=== PATIENT | female | born 1985 | race Caucasian/White ===

== ENCOUNTER 2018-02-07 10:51 | Emergency (ER) | payer OTHER ==
[~2018-02-07] VITALS: Ht 162.6 cm; Wt 45.5 kg
[~2018-02-07 10:51] MED LIST: ABILIFY5 MG; ADVAIR 250/28 DISKUS IH; ALBUTEROL0.83 MG/ML IH; ALDACTONE 100M100 MG PO; ATROVENT I0.2 MG/1 M IH; ATROVENT INHALE14 GM IH; BACLOFEN PO; BENADRYL25 M2 PO; BIRTH CONTROL PILLS; CELEXA; CENTRUM1 TAB PO; CEPHALEXIN500 M1 PO; CLARITIN D TAB1 TAB PO; EXCEDRIN MIGRAI1 TAB PO; INDERAL 10MG10 MG PO; LAMICTAL200 MG PO; LEVAQUIN 5500 MG/TA1 PO; LEVAQUIN PO; LITHIUM 30300 MG/CAP PO; LORTAB 5/500 501 TAB PO; MIDRIN 325 MG-11 CAP PO; MINOCYCLIN100 MG/CAP PO; NEURONTIN300 MG/CAP PO; NEXIUM 40MG40 MG PO; NEXIUM40 MG PO; NORCO 325 MG-7.1 TAB PO; PHENERGAN 25 TA25 MG PO; PREDNISONE20 MG PO; PRENATAL VITAMI1 TA5 PO; PRIL40 PO; PROAMATINE2.5 MG PO; PROVENTIL0.09 MG/A1 IH; REGLAN 5MG T5 MG/TAB PO; RELPAX 40MG TAB40 MG PO; RT ADVAIR 228 DISKUS IH; RT SPIRIVA18 MCG IH; SINGULAIR 110 MG/TAB PO; SYNTHROID 0.0.025 MG PO; VENTOLIN0.09 MG IH; WELLBUTRIN XL300 M1 PO; ZOFRAN4 MG PO; ZOLOFT100 MG PO; [UNRECOGNIZED DRUG - OTHER] PO
[2018-02-07 10:52] VITALS: TEMP 97.7
[2018-02-07 11:16] LABS: BASO % 0.4 % (0.0-2.0); EOS # 0.1 (0.0-0.7); EOS % 1.1 % (0-4.0); GRAN # 6.9 (1.4-6.5); GRAN % 65.1 % (42.2-75.2); HEMATOCRIT 31.6 % (37.0-47.0); HEMOGLOBIN 9.5 g/dl (12.5-16.0); LYMPH # 2.5 (1.2-3.4); LYMPH % 23.3 % (20.0-51.0); MEAN CELL VOLUME 82 fl (80.0-100.0); MEAN CORPUSCULAR HEMOGLOBIN 25 pg (27.0-31.0); MEAN CORPUSCULAR HGB CONC 30 g/dl (33.0-37.0); MEAN PLATELET VOLUME 11.9 fl (7.4-10.4); MONO % 9.7 % (1.7-9.3); PLATELET COUNT 388 K/mm3 (130-400); RED BLOOD COUNT 3.86 M/mm3 (4.10-5.30)
[2018-02-07 11:27] LABS: ALBUMIN 3.9 gm/dL (3.5-5.0); BILIRUBIN,TOTAL 0.2 mg/dL (0.0-1.0); C-REACTIVE PROTEIN 0.7 mg/dL (0.0-0.9); CALCIUM 8.8 mg/dL (8.4-10.2); CREATININE, serum 0.71 mg/dL (0.52-1.25); POTASSIUM 3.6 mmol/L (3.4-5.0)
[2018-02-07 12:50] LABS: COLLECTION METHOD CLEAN CATCH
[2018-02-07 12:59] LABS: MUCOUS Present /lpf; PH 7 (5-8); SQUAMOUS EPITHELIAL 0-2 /hpf; URINE APPEARANCE Clear; URINE BACTERIA None Seen /hpf; URINE BILIRUBIN Negative (NEGATIVE); URINE BLOOD Negative (NEGATIVE); URINE COLOR Yellow; URINE GLUCOSE Negative (NEGATIVE); URINE KETONE Negative (NEGATIVE); URINE LEUKOCYTE ESTERASE Negative (NEGATIVE); URINE NITRATE Negative (NEGATIVE); URINE PROTEIN(semi-quant) Negative (NEGATIVE); URINE RBC 0-2 /hpf; URINE UROBILINOGEN Negative (NEGATIVE)
[2018-02-07 14:21] VITALS: BP 112/62; PULSE 73
== END 2018-02-07 14:30 | disposition home or self-care (01) ==
LOC: COL.ER 10:51
PROVIDERS: Emergency Medicine
DX: R11.10 Vomiting, unspecified (principal); R10.84 Generalized abdominal pain; G89.29 Other chronic pain; Z98.51 Tubal ligation status; Z90.89 Acquired absence of other organs; Z98.890 Other specified postprocedural states
CPT/HCPCS: J1170; J2405; J7030; Q9967

== ENCOUNTER → 2018-07-21 | Outpatient (CLI) | payer OTHER | LOC: COL.VAS 09:22 | DX: I07.1 Rheumatic tricuspid insufficiency (principal); R79.89 Other specified abnormal findings of blood chemistry; R60.0 Localized edema ==

== ENCOUNTER 2018-07-22 07:53 | Emergency (ER) | payer OTHER ==
[~2018-07-22] VITALS: Ht 162.6 cm; Wt 52.3 kg
[2018-07-22 08:43] LABS: BASO # 0.1 (0.0-0.2); BASO % 0.4 % (0.0-2.0); EOS # 0.1 (0.0-0.7); EOS % 1.1 % (0-4.0); GRAN # 7.6 (1.4-6.5); GRAN % 67.6 % (42.2-75.2); LYMPH # 2.2 (1.2-3.4); LYMPH % 19.5 % (20.0-51.0); MEAN CELL VOLUME 82 fl (80.0-100.0); MEAN CORPUSCULAR HGB CONC 28 g/dl (33.0-37.0); MEAN PLATELET VOLUME 11.8 fl (7.4-10.4); MONO # 1.1 (0.1-0.6); MONO % 9.5 % (1.7-9.3); PLATELET COUNT 271 K/mm3 (130-400); RED BLOOD COUNT 2.95 M/mm3 (4.10-5.30); REDCELL DISTRIBUTION WIDTH-CV 17.3 % (11.5-14.5)
[2018-07-22 08:45] LABS: HEMATOCRIT 24.2 % (37.0-47.0); HEMOGLOBIN 6.8 g/dl (12.5-16.0); MEAN CORPUSCULAR HEMOGLOBIN 23 pg (27.0-31.0)
[2018-07-22 08:55] LABS: CALCIUM 8.2 mg/dL (8.4-10.2); CREATININE, serum 0.66 mg/dL (0.52-1.25); POTASSIUM 3.6 mmol/L (3.4-5.0)
[2018-07-22 09:07] LABS: HEMOGLOBIN 6.6 g/dl (12.5-16.0)
[2018-07-22 11:59] VITALS: BP 115/68; PULSE 86; TEMP 98.9
[2018-07-22 12:09] VITALS: BP 123/71; PULSE 85; TEMP 99.1
[2018-07-22 12:32] VITALS: BP 114/53; PULSE 89; TEMP 98.9
[2018-07-22 13:00] VITALS: BP 114/53; PULSE 87; TEMP 98.9
== END 2018-07-22 13:00 | disposition short-term general hospital (02) ==
LOC: COL.ER 07:53
PROVIDERS: Emergency Medicine
DX: K66.8 Other specified disorders of peritoneum (principal); G99.0 Autonomic neuropathy in diseases classified elsewhere; K31.84 Gastroparesis; Z90.89 Acquired absence of other organs
CPT/HCPCS: J1200; J1956; J2270; J2405; P9016; Q9967

== ENCOUNTER 2018-09-22 23:45 | Inpatient (IN) | payer OTHER ==
[~2018-09-22] VITALS: Ht 154.9 cm; Wt 47.7 kg
[2018-09-23] VITALS (9 sets, daily range): BP systolic 102–123; BP diastolic 62–74; PULSE 77–107; TEMP 99.7
[2018-09-23 00:46] LABS: BASO # 0.1 (0.0-0.2); BASO % 0.3 % (0.0-2.0); EOS # 0.1 (0.0-0.7); EOS % 0.4 % (0-4.0); GRAN # 12.8 (1.4-6.5); GRAN % 74.6 % (42.2-75.2); LYMPH # 2.6 (1.2-3.4); LYMPH % 15.4 % (20.0-51.0); MEAN CELL VOLUME 75 fl (80.0-100.0); MEAN CORPUSCULAR HGB CONC 29 g/dl (33.0-37.0); MEAN PLATELET VOLUME 10.7 fl (7.4-10.4); MONO # 1.4 (0.1-0.6); MONO % 8.3 % (1.7-9.3); PLATELET COUNT 481 K/mm3 (130-400); RED BLOOD COUNT 4.12 M/mm3 (4.10-5.30); REDCELL DISTRIBUTION WIDTH-CV 17.5 % (11.5-14.5)
[2018-09-23 00:53] LABS: HEMATOCRIT 30.9 % (37.0-47.0); HEMOGLOBIN 8.8 g/dl (12.5-16.0); MEAN CORPUSCULAR HEMOGLOBIN 21 pg (27.0-31.0)
[2018-09-23 01:01] LABS: ALANINE AMINOTRANSFERASE 20 U/L (9-52); ALBUMIN 3.7 gm/dL (3.5-5.0); ALKALINE PHOSPHATASE 76 U/L (50-136); ANION GAP 8 mmol/L (7-16); AST,SGOT 26 U/L (15-37); BILIRUBIN,TOTAL 0.2 mg/dL (0.0-1.0); BLOOD UREA NITROGEN 16 mg/dL (7-17); CALCIUM 8.6 mg/dL (8.4-10.2); CARBON DIOXIDE 21 mmol/L (22-30); CHLORIDE 109 mmol/L (98-107); CREATININE, serum 0.69 mg/dL (0.52-1.25); GLUCOSE 108 mg/dL (74-106); LIPASE 25 U/L (23-300); POTASSIUM 3.2 mmol/L (3.4-5.0); SODIUM 138 mmol/L (137-145); TOTAL PROTEIN 6.3 gm/dL (6.4-8.2)
[2018-09-23 01:10] LABS: C-REACTIVE PROTEIN < 0.5 mg/dL (0.0-0.9)
[2018-09-23] MEDS ORDERED: DIAMOX 250MG250 MG PO (04:36)
[2018-09-23] MEDS ORDERED: CORTEF5 MG PO ×3 (04:38)
[2018-09-23] MEDS ORDERED: CORLANOR5 MG PO (04:39)
[2018-09-23] MEDS ORDERED: FLORINEF ACETA0.1 MG PO (04:39)
[2018-09-23] MEDS ORDERED: SINGULAIR 110 MG/TAB PO (04:40)
[2018-09-23] MEDS ORDERED: TOPAMAX 100MG100 M1 PO (04:40)
[2018-09-23] MEDS ORDERED: SYNTHROID 0.0.025 MG PO (04:40)
[2018-09-23] MEDS ORDERED: INDOCIN 25MG CA25 MG PO (04:40)
[2018-09-23] MEDS ORDERED: PROTONIX I40 MG/VIAL IV (04:41)
[2018-09-23] MEDS ORDERED: FENTANYL 100MCG TD (04:41)
[2018-09-23] MEDS ORDERED: FENTANYL 25 MCG TD (04:41)
[2018-09-23 04:42] LABS: COLLECTION METHOD CLEAN CATCH
[2018-09-23] MEDS ORDERED: NUCYNTA75 MG PO (04:42)
[2018-09-23] MEDS ORDERED: NORCO 325 MG-7.1 TAB PO (04:42)
[2018-09-23] MEDS ORDERED: LIORESAL 1010 MG/TAB PO (04:43)
[2018-09-23] MEDS ORDERED: ULTRAM 50MG TAB50 MG PO (04:44)
[2018-09-23] MEDS ORDERED: WELLBUTRIN 100100 MG PO ×2 (04:44)
[2018-09-23] MEDS ORDERED: VITAMIN B650 MG PO (04:45)
[2018-09-23] MEDS ORDERED: LASIX 20MG TABL20 MG PO (04:46)
[2018-09-23 04:55] LABS: PH 8 (5-8); SQUAMOUS EPITHELIAL 0-2 /hpf; URINE APPEARANCE Clear; URINE BACTERIA None Seen /hpf; URINE BILIRUBIN Negative (NEGATIVE); URINE BLOOD Negative (NEGATIVE); URINE COLOR Straw; URINE GLUCOSE Negative (NEGATIVE); URINE KETONE Negative (NEGATIVE); URINE LEUKOCYTE ESTERASE Negative (NEGATIVE); URINE NITRATE Negative (NEGATIVE); URINE PROTEIN(semi-quant) Negative (NEGATIVE); URINE RBC 0-2 /hpf; URINE UROBILINOGEN Negative (NEGATIVE)
--- NOTE | 2018-09-23 06:37 | NUR ---
PT ARRIVED FROM ER VIA WHEELCHAIR ACCOMPANIED BY RN FROM ER. PT ADVISED HAS PAIN IN ABDOMEN RATED AT A 6/10 THAT IS SHARP. PT WAS GIVEN DILAUDID BEFORE SHE CAME UP. INTERMITTIN SUCTION HOOKED UP TO J-TUBE. PT VERY SLEEPY AT THIS TIME. PT ADVISED THAT SHE DID NOT GET ANY SLEEP AND IS TIRED NOW. NO NEEDS AT THIS TIME CALL LIGHT WITHIN REACH.
--- NOTE | 2018-09-23 08:00 | NUR ---
Patient resting in bed at this time. Patient rouses easily, is alert and oriented while awake. J tube to LIS per order, approximately 600 ml of pale green drainage in suction cannister. IVF infusing per order. Patient denies further needs at this time, call light within reach.
--- NOTE | 2018-09-23 09:48 | NUR ---
COLLETTE met with patient and family about discharge planning. Patient lives independently at home with her family and plans to return there upon discharge. Patient's PCP is Dr Lindsey Vigil in [place] and she obtains prescriptions from [facility]. Patient does not use any home health services but she does obtains supplie from [facility]. Patient does not have a DPOA but she is working with a rolfer to get one in place. COLLETTE does not anticipate any discharge needs.
--- NOTE | 2018-09-23 15:20 | NUR ---
Patient arrived to floor from PACU via bed at approximately 1520. Post op checks initiated. Patient is drowsy but alert and oriented. Epidural infusing, epidural site is CDI, ALUMNI RELATIONS COORDINATOR button within reach, patient educated on use. Midline incision with gauze dressing, dressing is CDI. J tube is clamped, NG tube in place to LIS, approximately 100 ml in cannister. Peterson catheter in place draining clear pale yellow urine. Patient denies needs at this time, call light within reach.
[2018-09-23 18:50] LABS: HEMATOCRIT 30.4 % (37.0-47.0); HEMOGLOBIN 8.6 g/dl (12.5-16.0)
--- NOTE | 2018-09-23 19:40 | NUR ---
Pt. laying in bed. Pt. is A&OX3, assessment complete. IV to lt. forearm patent with IV fluids infusing per orders. Portacath to rt. chest, starting TPN at this time. Epidural intact. Pt. reports pain well managed with epidural at this time. Dressing to Midline abd. incision CDI. Pt. denies further needs, call light within reach.
--- NOTE | 2018-09-23 19:59 | NUR ---
Removed rodriguez catheter per patient request per order from hospitalist. Removed 20ml from balloon, rodriguez removed intact, patient tolerated well. Patient was able to get up and void a small amount immediately post removal. While assisting patient to bathroom, it was discovered that her NG tube was no longer in place. Patient states that she accidentally pulled it out earlier and forgot to report it. Patient denies any nausea or vomiting since it had been out. Reported NG removal to Dr. Clarke, recieved a TORB to put in a PRN order to replace if patient becomes nauseated or begins vomiting. Patient denies further needs at this time, call light within reach.
[2018-09-24 00:24] VITALS: BP 132/84; PULSE 83; TEMP 98.7
[2018-09-24 04:08] VITALS: BP 104/50; PULSE 74; TEMP 98.1
[2018-09-24 07:01] LABS: BASO % 0.1 % (0.0-2.0); GRAN # 15.1 (1.4-6.5); GRAN % 83.6 % (42.2-75.2); LYMPH # 1.2 (1.2-3.4); LYMPH % 6.9 % (20.0-51.0); MEAN CELL VOLUME 75 fl (80.0-100.0); MEAN CORPUSCULAR HGB CONC 28 g/dl (33.0-37.0); MEAN PLATELET VOLUME 10.3 fl (7.4-10.4); MONO # 1.5 (0.1-0.6); MONO % 8.3 % (1.7-9.3); RED BLOOD COUNT 3.43 M/mm3 (4.10-5.30); REDCELL DISTRIBUTION WIDTH-CV 17.8 % (11.5-14.5)
[2018-09-24 07:10] LABS: HEMATOCRIT 25.8 % (37.0-47.0); HEMOGLOBIN 7.2 g/dl (12.5-16.0); MEAN CORPUSCULAR HEMOGLOBIN 21 pg (27.0-31.0); PLATELET COUNT 344 K/mm3 (130-400)
[2018-09-24 07:13] LABS: ALANINE AMINOTRANSFERASE 13 U/L (9-52); ALBUMIN 2.7 gm/dL (3.5-5.0); ALKALINE PHOSPHATASE 51 U/L (50-136); ANION GAP 6 mmol/L (7-16); AST,SGOT 38 U/L (15-37); BILIRUBIN,TOTAL < 0.1 mg/dL (0.0-1.0); BLOOD UREA NITROGEN 21 mg/dL (7-17); CALCIUM 8.2 mg/dL (8.4-10.2); CARBON DIOXIDE 24 mmol/L (22-30); CHLORIDE 112 mmol/L (98-107); GLUCOSE 119 mg/dL (74-106); POTASSIUM 3.8 mmol/L (3.4-5.0); SODIUM 142 mmol/L (137-145); TOTAL PROTEIN 4.9 gm/dL (6.4-8.2)
[2018-09-24 07:34] VITALS: BP 105/62; PULSE 76; TEMP 98.4
--- NOTE | 2018-09-24 08:00 | NUR ---
Patient resting in bed at this time. Patient is easily rousable and alert and oriented while awake. Epidural in place infusing per order, site is CDI. IVF infusing into peripherial in LFA per order, TPN to RSC port. Patient reports pain is well controlled at this time, denies nausea or vomiting. Patient denies further needs, call light within reach
[2018-09-24 10:30] LABS: MAGNESIUM 2.3 mg/dL (1.6-2.3); PHOSPHOROUS 2.4 mg/dL (2.5-4.5)
[2018-09-24 11:50] VITALS: BP 117/63; PULSE 79; TEMP 98.2
[2018-09-24 15:17] LABS: HEMATOCRIT 26.4 % (37.0-47.0); HEMOGLOBIN 7.8 g/dl (12.5-16.0)
[2018-09-24 17:29] VITALS: BP 119/73; PULSE 74; TEMP 98.8
--- NOTE | 2018-09-24 20:30 | NUR ---
Initial shift assessment done- Requesting pain meds for abd pain 01/17- will give the Dilaudid as ordered- Abd dressing dry and intact- J-Tube clamped at this time. TPN at 79.4cc/hr per PORT. tele on.
[2018-09-24 20:31] VITALS: BP 115/72; BP 135/85; PULSE 102; PULSE 80; TEMP 98
[2018-09-25 00:29] VITALS: BP 116/75; PULSE 88; TEMP 99.3
[2018-09-25 04:05] VITALS: BP 109/72; PULSE 71; TEMP 98.6
--- NOTE | 2018-09-25 04:10 | NUR ---
States having abd pain 01/17- requesting Dilaudid at this time-- has been taking short rests throughout the night- TPN at 79.4cc/hr and LR at 125cc hr-
[2018-09-25 07:00] LABS: CALCIUM 8.6 mg/dL (8.4-10.2); CREATININE, serum 0.53 mg/dL (0.52-1.25); POTASSIUM 3.6 mmol/L (3.4-5.0)
[2018-09-25 07:19] LABS: MEAN CELL VOLUME 76 fl (80.0-100.0); MEAN CORPUSCULAR HGB CONC 28 g/dl (33.0-37.0); MEAN PLATELET VOLUME 11.8 fl (7.4-10.4); PLATELET COUNT 407 K/mm3 (130-400); RED BLOOD COUNT 3.64 M/mm3 (4.10-5.30); REDCELL DISTRIBUTION WIDTH-CV 17.9 % (11.5-14.5)
[2018-09-25 08:14] LABS: HEMATOCRIT 27.7 % (37.0-47.0); HEMOGLOBIN 7.7 g/dl (12.5-16.0); MEAN CORPUSCULAR HEMOGLOBIN 21 pg (27.0-31.0)
[2018-09-25 08:27] LABS: BAND 2 % (0-10); LYMPHOCYTE 14 % (20.0-51.0); NEUTROPHILS 81 % (42.0-75.2)
[2018-09-25 08:29] LABS: ANISOCYTOSIS 2+; HYPOCHROMIA 1+; POIKILOCYTOSIS 1+; TEAR DROP CELLS 1+
[2018-09-25 08:31] LABS: PLATELET ESTIMATE INCREASED (NORMAL)
[2018-09-25 08:54] LABS: MAGNESIUM 1.9 mg/dL (1.6-2.3); PHOSPHOROUS 2.3 mg/dL (2.5-4.5)
[2018-09-25 09:00] VITALS: BP 114/72; PULSE 82; TEMP 98.3
[2018-09-25 13:46] VITALS: BP 112/74; PULSE 83; TEMP 98.8
--- NOTE | 2018-09-25 16:50 | NUR ---
PATIENT DISCHARGING HOME VIA WHEELCHAIR TO PERSONAL VEHICLE WITH FRIEND. GAVE DISCHARGE INSTRUCTIONS AND FOLLOW UP APTS. PATIENT ASKING ABOUT SCRIPT FOR [place]. CALLED . AWAITING RETURN CALL. DC'D IV. PATIENT PACKING BELONGINGS.
[2018-09-25] MEDS ORDERED: NORCO 325 MG-7.1 TAB PO (16:56)
--- NOTE | 2018-09-25 17:00 | NUR ---
PATIENT IS DISCHARING HOME WITH FRIEND TO PERSONAL VEHICLE.
== END 2018-09-25 17:00 | disposition home or self-care (01) | DRG 336 ==
LOC: COL.ER 23:45 → SURG 09-23 03:43 → COL.ER 09-23 03:43 → SURG 09-23 03:43
PROVIDERS: Emergency Medicine; Surgery; ADMIT Hospitalist
PROC: 0DNU0ZZ Release Omentum, Open Approach (ICD-10-PCS; 2018-09-23)
PROC: 0DQV0ZZ Repair Mesentery, Open Approach (ICD-10-PCS; principal; 2018-09-23 12:30)
DX: K43.0 Incisional hernia with obstruction, without gangrene (principal); K56.51 Intestinal adhesions [bands], with partial obstruction; Q79.6 Ehlers-Danlos syndromes; E27.40 Unspecified adrenocortical insufficiency; E27.1 Primary adrenocortical insufficiency; E87.2 Acidosis; R18.8 Other ascites; K31.84 Gastroparesis; F41.8 Other specified anxiety disorders; D50.9 Iron deficiency anemia, unspecified; E03.9 Hypothyroidism, unspecified; G89.29 Other chronic pain; E87.6 Hypokalemia; J45.909 Unspecified asthma, uncomplicated
CPT/HCPCS: 99222-AI; 99232-AI; 99239; A4314; J0330; J0610; J1100; J1170; J1200; J1720; J2250; J2405; J2550; J3010; J3475; J3480; J7030; J7120; J7131; Q9967

== ENCOUNTER 2018-10-27 05:21 | Emergency (ER) | payer OTHER ==
[~2018-10-27 05:21] MED LIST changes: +CORLANOR5 MG PO; +CORTEF 20MG TAB20 MG PO; +CORTEF5 MG; +CORTEF5 MG PO; +DIAMOX 250MG250 MG PO; +FENTANYL 100MCG TD; +FENTANYL 25 MCG TD; +FLORINEF ACETA0.1 MG PO; +INDOCIN 25MG CA25 MG PO; +LASIX 20MG TABL20 MG PO; +LIORESAL 1010 MG/TAB PO; +NUCYNTA75 MG PO; +PROTONIX I40 MG/VIAL IV; +TOPAMAX 25MG25 M1 PO; +ULTRAM 50MG TAB50 MG PO; +VITAMIN B650 MG PO; +WELLBUTRIN 100100 MG PO
[2018-10-27 05:26] VITALS: TEMP 98.7
[2018-10-27 06:15] LABS: BASO # 0.1 (0.0-0.2); BASO % 0.3 % (0.0-2.0); EOS # 0.3 (0.0-0.7); EOS % 1.2 % (0-4.0); GRAN # 17.6 (1.4-6.5); GRAN % 86.6 % (42.2-75.2); LYMPH # 1.1 (1.2-3.4); LYMPH % 5.6 % (20.0-51.0); MEAN CELL VOLUME 83 fl (80.0-100.0); MEAN CORPUSCULAR HGB CONC 27 g/dl (33.0-37.0); MEAN PLATELET VOLUME 10.9 fl (7.4-10.4); MONO % 5.1 % (1.7-9.3); PLATELET COUNT 296 K/mm3 (130-400); RED BLOOD COUNT 3.91 M/mm3 (4.10-5.30); REDCELL DISTRIBUTION WIDTH-CV 24.2 % (11.5-14.5)
[2018-10-27 06:17] LABS: HEMATOCRIT 32.4 % (37.0-47.0); HEMOGLOBIN 8.7 g/dl (12.5-16.0); MEAN CORPUSCULAR HEMOGLOBIN 22 pg (27.0-31.0)
[2018-10-27 06:28] LABS: ALBUMIN 3.3 gm/dL (3.5-5.0); BILIRUBIN,TOTAL 0.4 mg/dL (0.0-1.0); CALCIUM 8.1 mg/dL (8.4-10.2); CREATININE, serum 0.81 (0.52-1.25); POTASSIUM 3.1 mmol/L (3.4-5.0); TOTAL PROTEIN 6.3 gm/dL (6.4-8.2)
[2018-10-27 07:35] LABS: COLLECTION METHOD CLEAN CATCH
[2018-10-27 07:46] LABS: PH 6 (5-8); SQUAMOUS EPITHELIAL None Seen /hpf; URINE APPEARANCE Clear; URINE BACTERIA Rare /hpf; URINE BILIRUBIN Negative (NEGATIVE); URINE BLOOD Negative (NEGATIVE); URINE COLOR Amber; URINE GLUCOSE Negative (NEGATIVE); URINE KETONE Negative (NEGATIVE); URINE LEUKOCYTE ESTERASE Negative (NEGATIVE); URINE NITRATE Negative (NEGATIVE); URINE PROTEIN(semi-quant) Negative (NEGATIVE); URINE UROBILINOGEN >=4.0 mg/dL (NEGATIVE)
[2018-10-27 08:57] LABS: TRICYCLIC ANTIDEPRESS URINE NEGATIVE
[2018-10-27 12:00] VITALS: BP 117/75; PULSE 82
== END 2018-10-27 12:00 | disposition short-term general hospital (02) ==
LOC: COL.ER 05:21
PROVIDERS: Emergency Medicine
DX: R41.82 Altered mental status, unspecified (principal); R11.2 Nausea with vomiting, unspecified; R19.7 Diarrhea, unspecified; K31.84 Gastroparesis; Q07.00 Arnold-Chiari syndrome without spina bifida or hydrocephalus; E27.40 Unspecified adrenocortical insufficiency; D64.9 Anemia, unspecified; Z90.49 Acquired absence of other specified parts of digestive tract; Z98.890 Other specified postprocedural states; Z87.19 Personal history of other diseases of the digestive system; Z98.51 Tubal ligation status; Z79.51 Long term (current) use of inhaled steroids
CPT/HCPCS: A4216; J0692; J1720; J2405; J3480; J7030; Q9967

== ENCOUNTER 2020-05-10 04:57 | Emergency (ER) | payer MEDICARE, BC ==
[~2020-05-10] VITALS: Ht 162.6 cm; Wt 47.3 kg
[~2020-05-10 04:57] MED LIST changes: +AUGMENTIN ES-6125 ML PO; +INDOCIN SR 75MG75 MG PO; +PHENERGAN25 MG/ML; +SODIUM CHLORI1000 ML IV; +TPN ELECTROLYTE IV; +Zofran IJ; +[UNRECOGNIZED DRUG - CODE]; +[UNRECOGNIZED DRUG - MIXTURE]
[2020-05-10 05:02] VITALS: TEMP 97.9
[2020-05-10 05:39] LABS: MEAN CELL VOLUME 83 fl (80.0-100.0); MEAN CORPUSCULAR HGB CONC 29 g/dl (33.0-37.0); MEAN PLATELET VOLUME 11.2 fl (7.4-10.4); PLATELET COUNT 512 K/mm3 (130-400); REDCELL DISTRIBUTION WIDTH-CV 18.5 % (11.5-14.5)
[2020-05-10 05:47] LABS: HEMOGLOBIN 8.3 g/dl (12.5-16.0); MEAN CORPUSCULAR HEMOGLOBIN 24 pg (27.0-31.0)
[2020-05-10 05:51] LABS: ALANINE AMINOTRANSFERASE 5 U/L (4-34); ALBUMIN 3.9 gm/dL (3.5-5.0); ALKALINE PHOSPHATASE 101 U/L (50-136); ANION GAP 8 mmol/L (7-16); AST,SGOT 17 U/L (15-37); BILIRUBIN,TOTAL 0.3 mg/dL (0.0-1.0); BLOOD UREA NITROGEN 15 mg/dL (7-17); CALCIUM 8.8 mg/dL (8.4-10.2); CARBON DIOXIDE 16 mmol/L (22-30); CHLORIDE 114 mmol/L (98-107); CREATINE KINASE 57 U/L (30-135); CREATININE, serum 0.64 (0.52-1.25); GLUCOSE 193 mg/dL (74-106); LIPASE 64 U/L (23-300); MAGNESIUM 2.5 mg/dL (1.6-2.3); POTASSIUM 5.5 mmol/L (3.4-5.0); SODIUM 138 mmol/L (137-145); TOTAL PROTEIN 7.1 gm/dL (6.4-8.2)
[2020-05-10 05:52] LABS: C-REACTIVE PROTEIN < 0.5 mg/dL (0.0-0.9)
[2020-05-10 06:09] LABS: ERYTHROCYTE SEDIMENTATION RATE 18 mm/hr (0-20)
[2020-05-10 06:27] LABS: BAND 10 % (0-10); LYMPHOCYTE 5 % (20.0-51.0); METAMYELOCYTE 1 % (0-0); MYELOCYTE 7 % (0-0); NEUTROPHILS 75 % (42.0-75.2); PLATELET ESTIMATE INCREASED (NORMAL)
[2020-05-10 06:28] LABS: ANISOCYTOSIS 2+; SCHISTOCYTES 1+
[2020-05-10 06:56] LABS: COLLECTION METHOD CLEAN CATCH
[2020-05-10 07:02] LABS: PH 8 (5-8); SQUAMOUS EPITHELIAL None Seen /hpf; URINE APPEARANCE Clear; URINE BACTERIA None Seen /hpf; URINE BILIRUBIN Negative (NEGATIVE); URINE BLOOD Negative (NEGATIVE); URINE COLOR Straw; URINE GLUCOSE Negative (NEGATIVE); URINE KETONE Negative (NEGATIVE); URINE LEUKOCYTE ESTERASE Negative (NEGATIVE); URINE NITRATE Negative (NEGATIVE); URINE PROTEIN(semi-quant) Negative (NEGATIVE); URINE RBC 0-2 /hpf; URINE UROBILINOGEN Negative (NEGATIVE)
[2020-05-10 13:47] VITALS: BP 119/82; PULSE 91
== END 2020-05-10 14:15 | disposition short-term general hospital (02) ==
LOC: COL.ER 04:57
PROVIDERS: Emergency Medicine
DX: G47.00 Insomnia, unspecified (principal); E87.5 Hyperkalemia; E87.2 Acidosis; G89.29 Other chronic pain; Z20.828 Contact with and (suspected) exposure to other viral communicable diseases; Z32.02 Encounter for pregnancy test, result negative; Z88.8 Allergy status to other drugs, medicaments and biological substances; Z88.6 Allergy status to analgesic agent
CPT/HCPCS: J1200; J1720; J2060; J7040

== ENCOUNTER 2020-10-18 23:14 | Emergency (ER) | payer MEDICARE, BC ==
[~2020-10-18] VITALS: Ht 162.6 cm; Wt 47.7 kg
[2020-10-18 23:22] VITALS: TEMP 98.8
[2020-10-18 23:42] LABS: BASO # 0.1 (0.0-0.2); EOS # 0.1 (0.0-0.7); EOS % 1.7 % (0-4.0); GRAN # 3.3 (1.4-6.5); GRAN % 46.1 % (42.2-75.2); LYMPH # 3.1 (1.2-3.4); LYMPH % 42.8 % (20.0-51.0); MEAN CELL VOLUME 84 fl (80.0-100.0); MEAN CORPUSCULAR HEMOGLOBIN 24 pg (27.0-31.0); MEAN CORPUSCULAR HGB CONC 29 g/dl (33.0-37.0); MEAN PLATELET VOLUME 11.4 fl (7.4-10.4); MONO # 0.6 (0.1-0.6); MONO % 8.3 % (1.7-9.3); PLATELET COUNT 383 K/mm3 (130-400); RED BLOOD COUNT 4.12 M/mm3 (4.10-5.30); REDCELL DISTRIBUTION WIDTH-CV 18.4 % (11.5-14.5)
[2020-10-18 23:43] LABS: HEMATOCRIT 34.4 % (37.0-47.0)
[2020-10-18 23:48] LABS: ALANINE AMINOTRANSFERASE 6 U/L (4-34); ALBUMIN 3.8 gm/dL (3.5-5.0); ALKALINE PHOSPHATASE 94 U/L (50-136); ANION GAP 11 mmol/L (7-16); AST,SGOT 28 U/L (15-37); BILIRUBIN,TOTAL < 0.1 mg/dL (0.0-1.0); BLOOD UREA NITROGEN 12 mg/dL (7-17); CALCIUM 8.3 mg/dL (8.4-10.2); CARBON DIOXIDE 20 mmol/L (22-30); CHLORIDE 113 mmol/L (98-107); CREATININE, serum 0.63 (0.52-1.25); GLUCOSE 72 mg/dL (74-106); SODIUM 143 mmol/L (137-145)
[2020-10-19 00:25] LABS: COLLECTION METHOD CLEAN CATCH
[2020-10-19 00:30] LABS: PH 6 (5-8); SQUAMOUS EPITHELIAL None Seen /hpf; URINE APPEARANCE Clear; URINE BACTERIA None Seen /hpf; URINE BILIRUBIN Negative (NEGATIVE); URINE BLOOD Negative (NEGATIVE); URINE COLOR Straw; URINE GLUCOSE Negative (NEGATIVE); URINE KETONE Negative (NEGATIVE); URINE LEUKOCYTE ESTERASE Negative (NEGATIVE); URINE NITRATE Negative (NEGATIVE); URINE PROTEIN(semi-quant) Negative (NEGATIVE); URINE RBC 0-2 /hpf; URINE UROBILINOGEN Negative (NEGATIVE)
[2020-10-19 02:12] VITALS: BP 114/70; PULSE 80
== END 2020-10-19 02:12 | disposition home or self-care (01) ==
LOC: COL.ER 23:14
PROVIDERS: Emergency Medicine Emergency Medical Services
DX: R10.10 Upper abdominal pain, unspecified (principal); J45.909 Unspecified asthma, uncomplicated; I50.9 Heart failure, unspecified; Z91.040 Latex allergy status; Z88.8 Allergy status to other drugs, medicaments and biological substances; Z88.6 Allergy status to analgesic agent; Z32.02 Encounter for pregnancy test, result negative
CPT/HCPCS: J1885; J2270; J2405; J7030; Q9967

== ENCOUNTER → 2021-03-13 | Outpatient (CLI) | payer MEDICARE, BC ==
[~2021-03-13] MED LIST changes: +ALDACTONE 25MG25 M1 PO; +IMITREX100 MG PO; +LAMICTAL 100MG100 MG PO; +MORPHINE 1515 MG/TAB PO; +NURTEC ODT75 MG PO; +PHENERGAN25 MG/ML IV; +PRISTIQ 50 MG T50 MG PO; +SOLU-CORTE100 MG/VIA IJ; +TORADOL 10MG TA10 MG PO; +VOLTAREN 75 DR75 MG PO; +ZANAFLEX CAPSULE4 MG PO; +ZOFRAN INJ4 MG/2 ML IV; +ZOSYN 4 GM-0.51 PD1 IV
== END ==
LOC: COL.LAB 10:46
DX: K94.10 Enterostomy complication, unspecified (principal)

== ENCOUNTER 2021-04-04 14:14 | Inpatient (IN) | payer MEDICARE, BC ==
[~2021-04-04] VITALS: Ht 162.6 cm; Wt 51.2 kg
[~2021-04-04 14:14] MED LIST changes: -ALDACTONE 25MG25 M1 PO; -IMITREX100 MG PO; -LAMICTAL 100MG100 MG PO; -MORPHINE 1515 MG/TAB PO; -NURTEC ODT75 MG PO; -PHENERGAN25 MG/ML IV; -PRISTIQ 50 MG T50 MG PO; -SOLU-CORTE100 MG/VIA IJ; -TORADOL 10MG TA10 MG PO; -VOLTAREN 75 DR75 MG PO; -ZANAFLEX CAPSULE4 MG PO; -ZOFRAN INJ4 MG/2 ML IV; -ZOSYN 4 GM-0.51 PD1 IV
[2021-04-04 16:10] LABS: BASO # 0.1 (0.0-0.2); BASO % 0.8 % (0.0-2.0); EOS # 0.2 (0.0-0.7); EOS % 1.4 % (0-4.0); GRAN # 13.3 (1.4-6.5); GRAN % 77.6 % (42.2-75.2); HEMATOCRIT 38.8 % (37.0-47.0); HEMOGLOBIN 11.6 g/dl (12.5-16.0); LYMPH # 2.2 (1.2-3.4); LYMPH % 12.9 % (20.0-51.0); MEAN CELL VOLUME 84 fl (80.0-100.0); MEAN CORPUSCULAR HEMOGLOBIN 25 pg (27.0-31.0); MEAN CORPUSCULAR HGB CONC 30 g/dl (33.0-37.0); MEAN PLATELET VOLUME 11.5 fl (7.4-10.4); MONO # 1.2 (0.1-0.6); MONO % 6.9 % (1.7-9.3); PLATELET COUNT 530 K/mm3 (130-400); RED BLOOD COUNT 4.62 M/mm3 (4.10-5.30); REDCELL DISTRIBUTION WIDTH-CV 18.3 % (11.5-14.5)
[2021-04-04 16:27] LABS: ALANINE AMINOTRANSFERASE 8 U/L (0-55); ALKALINE PHOSPHATASE 98 U/L (0-750); ANION GAP 13 mmol/L; AST,SGOT 27 U/L (5-34); BILIRUBIN,TOTAL 0.2 mg/dL (0.2-1.2); BLOOD UREA NITROGEN 16 mg/dL (7-19); CALCIUM 9.4 mg/dL (8.4-10.2); CARBON DIOXIDE 17 mEq/L (22-29); CHLORIDE 110 mmol/L (98-107); CREATININE, serum 0.84 mg/dL (0.57-1.11); GLUCOSE 100 mg/dL (70-99); LIPASE < 10 U/L (8-78); POTASSIUM 3.3 mmol/L (3.5-4.5); SODIUM 140 mmol/L (136-145); TOTAL PROTEIN 8.1 gm/dL (6.2-8.1)
[2021-04-04 18:13] LABS: COLLECTION METHOD CLEAN CATCH
[2021-04-04 18:19] LABS: MUCOUS Present /lpf; PH 6 (5-8); SQUAMOUS EPITHELIAL None Seen /hpf; URINE APPEARANCE Clear; URINE BACTERIA None Seen /hpf; URINE BILIRUBIN Negative (NEGATIVE); URINE BLOOD Negative (NEGATIVE); URINE COLOR Yellow; URINE GLUCOSE Negative (NEGATIVE); URINE KETONE Negative (NEGATIVE); URINE LEUKOCYTE ESTERASE Negative (NEGATIVE); URINE NITRATE Negative (NEGATIVE); URINE PROTEIN(semi-quant) Negative (NEGATIVE); URINE RBC None Seen /hpf; URINE UROBILINOGEN Negative (NEGATIVE)
[2021-04-04 19:38] LABS: PROTHROMBIN TIME 11.1 SECONDS (9.7-12.8)
[2021-04-04] MEDS ORDERED: MORPHINE 1515 MG/TAB PO (19:49)
[2021-04-04] MEDS ORDERED: PHENERGAN25 MG/ML IV (19:52)
[2021-04-04] MEDS ORDERED: SOLU-CORTE100 MG/VIA IJ (19:53)
[2021-04-04] MEDS ORDERED: LAMICTAL 100MG100 MG PO (19:56)
[2021-04-04] MEDS ORDERED: CORLANOR5 MG PO (19:56)
[2021-04-04] MEDS ORDERED: NURTEC ODT75 MG PO (19:57)
[2021-04-04] MEDS ORDERED: ZOFRAN INJ4 MG/2 ML IV (19:58)
[2021-04-04] MEDS ORDERED: ULTRAM 50MG TAB50 MG PO (19:59)
[2021-04-04] MEDS ORDERED: FLORINEF ACETA0.1 MG PO (19:59)
[2021-04-04] MEDS ORDERED: DIAMOX 250MG250 MG PO (19:59)
[2021-04-04] MEDS ORDERED: IMITREX100 MG PO (20:00)
[2021-04-04] MEDS ORDERED: TORADOL 10MG TA10 MG PO (20:00)
[2021-04-04] MEDS ORDERED: SYNTHROID 0.0.025 MG PO (20:00)
[2021-04-04] MEDS ORDERED: SINGULAIR 110 MG/TAB PO (20:00)
[2021-04-04] MEDS ORDERED: PRISTIQ 50 MG T50 MG PO (20:00)
[2021-04-04] MEDS ORDERED: VOLTAREN 75 DR75 MG PO (20:01)
[2021-04-04] MEDS ORDERED: FENTANYL 100MCG TD (20:02)
[2021-04-04] MEDS ORDERED: ZANAFLEX CAPSULE4 MG PO (20:02)
[2021-04-04] MEDS ORDERED: ALDACTONE 25MG25 M1 PO (20:03)
[2021-04-04] MEDS ORDERED: PROTONIX I40 MG/VIAL IV (20:04)
--- NOTE | 2021-04-04 21:05 | NUR ---
Vancomycin Initial Dosing Pharmacy Note Ordering provider: Donnell Dubon MD Indication/duration: ABSCESS / 7 DAYS Trough goal: 15-20 HX: NONE IDENTIFIED BMI: 17.7 WT: 46.8 KG SCR: 0.84 ESTCRCL~70 ML/MIN T 1/2~ 11H TMAX: 98.6 WBC: 17.1 LA: 2.1 CRP WNL MICRO IN PROCESS CT AB/PELVIS REPORTING POSSIBLE ABSCESS WITHIN THE RECTUS MUSCLES PT LOADED WITH VANCO 1 GM X1. THEN STARTED ON MAINTENANCE REGIMEN OF 750 MG Q12H. DUE TO PT'S COMPLEXITY, AGE, AND SMALL BODY HABITUS, PT AT RISK FOR NOT FOLLOWING POPULATION BASED KINETICS. WILL FOLLOW RENAL FUNCTION, MICRO, VANCO LEVELS, AND TREATMENT PLAN FOR NEED TO ADJUST THERAPY. THANK YOU FOR THIS DOSING CONSULT!
[2021-04-04 22:00] VITALS: BP 123/80; PULSE 79; TEMP 98.2
--- NOTE | 2021-04-04 23:24 | NUR ---
PT ADMITTED TO [facility] FROM [facility] ADMISSION ASSESSMENT COMPLETED.
[2021-04-05 03:16] VITALS: BP 119/83; PULSE 81; TEMP 98.6
[2021-04-05 07:05] LABS: BASO # 0.1 (0.0-0.2); BASO % 0.5 % (0.0-2.0); EOS % 0.2 % (0-4.0); GRAN # 9.7 (1.4-6.5); GRAN % 86.2 % (42.2-75.2); LYMPH % 8.6 % (20.0-51.0); MEAN CELL VOLUME 87 fl (80.0-100.0); MEAN CORPUSCULAR HGB CONC 29 g/dl (33.0-37.0); MEAN PLATELET VOLUME 12.2 fl (7.4-10.4); MONO # 0.5 (0.1-0.6); MONO % 4.1 % (1.7-9.3); RED BLOOD COUNT 3.76 M/mm3 (4.10-5.30); REDCELL DISTRIBUTION WIDTH-CV 18.2 % (11.5-14.5)
[2021-04-05 07:24] LABS: HEMATOCRIT 32.7 % (37.0-47.0); HEMOGLOBIN 9.5 g/dl (12.5-16.0); MEAN CORPUSCULAR HEMOGLOBIN 25 pg (27.0-31.0); PLATELET COUNT 418 K/mm3 (130-400)
[2021-04-05 07:41] VITALS: BP 102/71; PULSE 72; TEMP 98.1
[2021-04-05 07:51] LABS: CREATININE, serum 0.71 mg/dL (0.57-1.11)
[2021-04-05 11:18] VITALS: BP 113/74; PULSE 72; TEMP 98.6
--- NOTE | 2021-04-05 11:32 | NUR ---
Austin met with the pt who stated her preference to return home once medically stable. The pt lives at home with her , Al ph# [phone]. The pt is independent on all ADLS and does not use any DME. The pt does not drive. The pt pcp is Lindsey Castro in [place] and gets her medicatins from [facility]. The pt states she has DPAO-hc- Al, . The pt might be getting transferred to [facility]. No other needs stated at this time. Sw to await further recommendations and follow up as need. D/c: unknown, pending.
[2021-04-05] MEDS ORDERED: INDOCIN SR 75MG75 MG PO (12:48)
[2021-04-05 15:02] LABS: ALBUMIN 2.9 gm/dL (3.5-5.0); ALKALINE PHOSPHATASE 67 U/L (0-750); ANION GAP 6 mmol/L; AST,SGOT 17 U/L (5-34); BILIRUBIN,TOTAL 0.2 mg/dL (0.2-1.2); BLOOD UREA NITROGEN 8 mg/dL (7-19); CALCIUM 7.8 mg/dL (8.4-10.2); CARBON DIOXIDE 16 mEq/L (22-29); CHLORIDE 117 mmol/L (98-107); CHOLESTEROL 196 mg/dL (0-199); CREATININE, serum 0.72 mg/dL (0.57-1.11); GLUCOSE 129 mg/dL (70-99); MAGNESIUM 1.8 mg/dL (1.6-2.6); PHOSPHOROUS 2.4 mg/dL (2.3-4.7); POTASSIUM 3.5 mmol/L (3.5-4.5); PRE ALBUMIN 6.5 mg/dL (16-38); SODIUM 139 mmol/L (136-145); TOTAL PROTEIN 5.9 gm/dL (6.2-8.1); TRIGLYCERIDE 152 mg/dL (0-149)
[2021-04-05 15:03] LABS: ALANINE AMINOTRANSFERASE < 6 U/L (0-55)
[2021-04-05 16:16] VITALS: BP 109/61; PULSE 53; TEMP 97.8
[2021-04-05 19:22] VITALS: BP 100/62; PULSE 60; TEMP 98.2
[2021-04-06 00:32] VITALS: BP 104/70; PULSE 63; TEMP 98.3
[2021-04-06 03:14] VITALS: BP 108/72; PULSE 58; TEMP 97.7
[2021-04-06 07:06] LABS: BASO # 0.1 (0.0-0.2); BASO % 0.6 % (0.0-2.0); EOS % 0.4 % (0-4.0); GRAN # 6.9 (1.4-6.5); GRAN % 84.9 % (42.2-75.2); LYMPH # 0.7 (1.2-3.4); LYMPH % 9.1 % (20.0-51.0); MEAN CELL VOLUME 86 fl (80.0-100.0); MEAN CORPUSCULAR HGB CONC 30 g/dl (33.0-37.0); MEAN PLATELET VOLUME 12.5 fl (7.4-10.4); MONO # 0.4 (0.1-0.6); MONO % 4.4 % (1.7-9.3); PLATELET COUNT 380 K/mm3 (130-400); RED BLOOD COUNT 3.33 M/mm3 (4.10-5.30); REDCELL DISTRIBUTION WIDTH-CV 17.9 % (11.5-14.5)
[2021-04-06 07:12] LABS: HEMATOCRIT 28.7 % (37.0-47.0); HEMOGLOBIN 8.5 g/dl (12.5-16.0); MEAN CORPUSCULAR HEMOGLOBIN 26 pg (27.0-31.0)
[2021-04-06 07:33] LABS: ALBUMIN 3.1 gm/dL (3.5-5.0); ALKALINE PHOSPHATASE 61 U/L (0-750); ANION GAP 7 mmol/L; AST,SGOT 18 U/L (5-34); BLOOD UREA NITROGEN 8 mg/dL (7-19); CALCIUM 8.2 mg/dL (8.4-10.2); CARBON DIOXIDE 16 mEq/L (22-29); CHLORIDE 118 mmol/L (98-107); CREATININE, serum 0.74 mg/dL (0.57-1.11); GLUCOSE 78 mg/dL (70-99); MAGNESIUM 1.9 mg/dL (1.6-2.6); PHOSPHOROUS 1.2 mg/dL (2.3-4.7); POTASSIUM 3.5 mmol/L (3.5-4.5); SODIUM 141 mmol/L (136-145); TOTAL PROTEIN 6.2 gm/dL (6.2-8.1)
[2021-04-06 07:34] LABS: ALANINE AMINOTRANSFERASE < 6 U/L (0-55)
[2021-04-06 07:51] LABS: BILIRUBIN,TOTAL 0.2 mg/dL (0.2-1.2)
[2021-04-06 08:00] VITALS: BP 112/72; PULSE 78; TEMP 98.6
--- NOTE | 2021-04-06 10:03 | NUR ---
Initial visit; Patient thanked Neuroscience Specialist for looking in on her and offering prayer and God's blessings. Neuroscience Specialist will follow up and keep Vianca in her prayers.
--- NOTE | 2021-04-06 11:08 | NUR ---
Patient alert and oriented, answers questions appropriately. See assessment. Abdomen firm, distended, per patient this is her norm. Bowel sounds active x4 quads. +Flatus. PEG tube in place to LLQ, gauze replaced. Previous PEG tube site with edges well approximated, iron intact. PAC accessed to right chest wall, dressing intact and CDI. No c/o at this time.
[2021-04-06 11:40] VITALS: BP 112/72; PULSE 59; TEMP 98.3
--- NOTE | 2021-04-06 15:19 | NUR ---
Britt, with the patient's infusion company "[employer]", contacted COLLETTE. Britt reports that the patient was just discharged from [facility] on the and was prescribed IV Rocephin daily for around 13 days and IV Mycamine daily for around 13 days. She states that the patient should still have those medications and supplies at home. 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 Britt requests that we keep her updated on the patient's disharge plan and if the patient's meds change. COLLETTE updated the patient's PA. Britt with [employer]: #[phone] fax#[phone]
[2021-04-06 16:00] VITALS: BP 104/55; PULSE 51; TEMP 98.6
[2021-04-06] MEDS ORDERED: ZOSYN 4 GM-0.51 PD1 IV (16:22)
--- NOTE | 2021-04-06 16:47 | NUR ---
The PA notified COLLETTE that the hospitalist is recommending a course of IV Zosyn, daily for five days and will discontinue the IV Rocephin. COLLETTE notified and faxed the IV antibiotic script and records to Britt at [facility]. COLLETTE then received a call back from Britt. Britt reports that she notified their pharmacist and he does not think the IV Zosyn is sufficient enough for the patient's diagnoses. Britt reports that the pharmacist is going to call the PA. Britt provided COLLETTE with the pharmacist's phone number. COLLETTE updated the PA and provided her with the phone number.
[2021-04-06 19:43] VITALS: BP 101/69; PULSE 55; TEMP 97.3
[2021-04-07 00:43] VITALS: BP 111/64; PULSE 67; TEMP 98.4
[2021-04-07 03:54] VITALS: BP 106/68; PULSE 59; TEMP 98.5
[2021-04-07 06:49] LABS: BASO # 0.1 (0.0-0.2); BASO % 0.7 % (0.0-2.0); EOS % 0.3 % (0-4.0); GRAN # 8.2 (1.4-6.5); GRAN % 83.7 % (42.2-75.2); LYMPH # 0.9 (1.2-3.4); MEAN CELL VOLUME 89 fl (80.0-100.0); MEAN CORPUSCULAR HGB CONC 29 g/dl (33.0-37.0); MEAN PLATELET VOLUME 12.8 fl (7.4-10.4); MONO # 0.6 (0.1-0.6); MONO % 5.6 % (1.7-9.3); PLATELET COUNT 394 K/mm3 (130-400); REDCELL DISTRIBUTION WIDTH-CV 17.8 % (11.5-14.5)
[2021-04-07 06:52] LABS: HEMATOCRIT 31.3 % (37.0-47.0); MEAN CORPUSCULAR HEMOGLOBIN 26 pg (27.0-31.0)
[2021-04-07 07:18] LABS: ALBUMIN 3.3 gm/dL (3.5-5.0); BILIRUBIN,TOTAL 0.1 mg/dL (0.2-1.2); CALCIUM 8.5 mg/dL (8.4-10.2); CREATININE, serum 0.72 mg/dL (0.57-1.11); PHOSPHOROUS 1.9 mg/dL (2.3-4.7); POTASSIUM 3.6 mmol/L (3.5-4.5); TOTAL PROTEIN 6.6 gm/dL (6.2-8.1)
--- NOTE | 2021-04-07 08:00 | NUR ---
PATIENT IS A&O AND AMBULATING IN ROOM INDEPENDENTLY. PATIENT ASKING ABOUT NARCOTICS, PATIENT WAS RECENTLY GIVEN PO MORPHINE & TRAMADOL FOR PAIN BY SENIOR CLINICAL PROJECT MANAGER NURSE AND DISCUSSED PAIN REGIME WITH PATIENT. PATIENT VERBALIZED UNDERSTANDING AND USE TO PRACTICE A NURSE. AM MEDS GIVEN, PATIENT CRUSHED AND GAVE HER MED HERSELF THROUGH HER J-TUBE. TPN INFUSING VIA PUMP INTO RIGHT PORT. PATIENT'S HOME MED [facility] IS MISSING AND NOT IN PATIENT'S BIN. AFTER LOOKING AROUND AND CALLING PHARMACY THE MEDICATION WAS LATER DISCOVERED, GIVEN AND ALSO GIVEN BACK TO PATIENT. PATIENT IS PLANNING ON DISCHARGING HOME LATER TODAY. HEAD TO TOE ASSESSMENT COMPLETE, SEE CHARTING. NO OTHER NEEDS AT THIS TIME. CALL LIGHT IN REACH.
[2021-04-07 08:31] VITALS: BP 121/82; PULSE 74; TEMP 99
[2021-04-07 11:29] VITALS: BP 100/58; PULSE 62; TEMP 98.7
--- NOTE | 2021-04-07 14:28 | NUR ---
COLLETTE collaborated with clinical team. The PA talked to the [facility] Pharmacist and plan is to continue with the IV Zosyn. Delaney, steward/stewardess economy class, has adjusted the patient's TPN and a new order was written for it. Delaney informed COLLETTE that the patient has enough TPN supplies to last her until [facility] delivers her new TPN. COLLETTE connected Delaney to [facility]. COLLETTE notified and faxed the TPN order to the pharmacist at [facility]. COLLETTE also contacted and updated Britt at [facility]. Britt reports that the patient will receive the antibiotics and supplies tomorrow around [id number]. COLLETTE updated the clinical team. The patient will receive her three doses of IV antibiotics here before discharging home later today and will then start the home infusions tomorrow, once they are delivered. COLLETTE attended clinical rounds. The hospitalist and PA reviewed the above. COLLETTE then followed up with the patient and also reviewed the above. The patient confirms that she has enough TPN supplies to last until her new order is delivered. She reports no concerns about returning home. COLLETTE presented and read the IM form outloud to the patient. The patient verbalized understanding and gave COLLETTE approval to sign the form on her behalf. COLLETTE provided her with a copy. No additional needs at this time.
[2021-04-07 16:00] VITALS: BP 94/62; PULSE 68; TEMP 98.6
--- NOTE | 2021-04-07 19:45 | NUR ---
Patient went over discharge paperwork with this nurse at 193. Ride arrived at 194, and assisted out via wheelchair with [employer] employee. Voiced no questions, needs, or concerns at time of discharge.
== END 2021-04-07 19:45 | disposition home or self-care (01) | DRG 388 ==
LOC: COL.ER 14:14 → SURG 18:18
PROVIDERS: Internal Medicine; Nurse Practitioner Family; Nurse Practitioner Primary Care; Physician Assistant; ADMIT Family Medicine
DX: K56.7 Ileus, unspecified (principal); K65.9 Peritonitis, unspecified; D83.9 Common variable immunodeficiency, unspecified; E27.1 Primary adrenocortical insufficiency; Q79.60 Ehlers-Danlos syndrome, unspecified; K31.84 Gastroparesis; R33.9 Retention of urine, unspecified; G43.909 Migraine, unspecified, not intractable, without status migrainosus; E03.9 Hypothyroidism, unspecified; J45.909 Unspecified asthma, uncomplicated; F32.9 Major depressive disorder, single episode, unspecified; D64.9 Anemia, unspecified; D47.3 Essential (hemorrhagic) thrombocythemia; G89.29 Other chronic pain
CPT/HCPCS: 99223-AI; 99233-AI; 99239; A4217; C9113; J0610; J1720; J2270; J2405; J2543; J2550; J3010; J3370; J3475; J3480; J7030; J7050; Q9967